=== PATIENT | female | born 1955 | race Caucasian/White ===

== ENCOUNTER 2017-02-25 13:11 | Emergency (ER) | payer OTHER ==
[~2017-02-25] VITALS: Ht 172.7 cm; Wt 61.2 kg
[~2017-02-25 13:11] MED LIST: ALEVE220 M1 PO; DOCUSATE SODIU100 MG PO; FERROUS SULFAT325 M1 PO; LEXAPRO10 M1 PO; MELATONIN5 M1 PO; NICODERM C21 MG/24 H TOP; OXACILLIN2 G1 IV; PERCOCET 325 MG1 TA2 PO; PERCOCET 5-3251 EACH PO; PROAIR HFA0.09 MG/Ac INH; PROAIR HFA8.5 GM INH; SYMBICORT 16010.2 GM INH; SYMBICORT 80/4.1 PUF INH; TYLENOL TAB 32325 MG PO
--- NOTE | 2017-02-25 15:26 | ED PSYCHIATRIC COMPLAINT ---
History of Present Illness General Chief Complaint: Psychiatric Related Complaint Stated Complaint: FAILURE TO THRIVE Vital Signs & Intake/Output Vital Signs & Intake/Output Vital Signs Date Time Temp Pulse Resp B/P Pulse O2 O2 Flow FiO2 Ox Delivery Rate 02/25 1347 98.4 105 18 94/66 96 Room Air Allergies Coded Allergies: NO KNOWN ALLERGIES (02/12/15) Reconcile Medications Albuterol Sulfate (Proair Hfa) 8.5 GM HFA.AER.AD 2 PUFF INH Q4H PRN COPD ( Reported) Budesonide/Formoterol Fumarate (Symbicort 160-4.5 Mcg Inhaler) 10.2 GM HFA.AER.AD 2 PUFF INH BID COPD (Reported) Escitalopram Oxalate (Lexapro) 10 MG TABLET 10 MG PO DAILY Oxycodone HCl/Acetaminophen (Percocet 5-325 MG Tablet) 5 MG-325 MG TABLET 1-2 TAB PO Q4-6H PRN PAIN Triage Note: BIBA, STATES "IM DEPRESSED", "I HAVE NO ONE". STATES SHE DRANK 5 "NIPS" TODAY. STATES HER SON AND [id number] HAVE "BLOCKED ME OUT". S/P HUMERUS SURGERY 10/05. DENIES SI OR HI. STATES "I WANT TO GO TO [place]". 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 CAD age 62). Departure Departure Condition: Stable Referrals: MONSE MUELLER MD (PCP/Family) Departure Forms: Customer Survey General Discharge Information
--- NOTE | 2017-02-25 15:43 | ED GENERAL ADULT ---
History of Present Illness General Chief Complaint: General Adult Stated Complaint: FAILURE TO THRIVE Source: patient, old records, EMS Exam Limitations: no limitations Vital Signs & Intake/Output Vital Signs & Intake/Output Vital Signs Date Time Temp Pulse Resp B/P Pulse O2 O2 Flow FiO2 Ox Delivery Rate 02/25 1347 98.4 105 18 94/66 96 Room Air Allergies Coded Allergies: NO KNOWN ALLERGIES (02/12/15) Reconcile Medications Albuterol Sulfate (Proair Hfa) 8.5 GM HFA.AER.AD 2 PUFF INH Q4H PRN COPD ( Reported) Budesonide/Formoterol Fumarate (Symbicort 160-4.5 Mcg Inhaler) 10.2 GM HFA.AER.AD 2 PUFF INH BID COPD (Reported) Escitalopram Oxalate (Lexapro) 10 MG TABLET 10 MG PO DAILY Oxycodone HCl/Acetaminophen (Percocet 5-325 MG Tablet) 5 MG-325 MG TABLET 1-2 TAB PO Q4-6H PRN PAIN Triage Note: JOANNA, STATES "IM DEPRESSED", "I HAVE NO ONE". STATES SHE DRANK 5 "NIPS" TODAY. STATES HER SON AND [id number] HAVE "BLOCKED ME OUT". S/P HUMERUS SURGERY 10/05. DENIES SI OR HI. STATES "I WANT TO GO TO [place]". Triage Nurses Notes Reviewed? yes Onset: Abrupt Duration: week(s): (FEW) Timing: recent history Injury Environment: home Severity: mild, moderate Modifying Factors: Worsens With: movement. HPI: 61 YEAR OLD FEMALE PRESENTS TO THE ER TODAY DUE TO AN INCREASE IN HER DEPRESSION AND INABILITY TO CARE FOR HERSELF AT HOME. SHE RECENTLY HAD THREE SHOULDER SURGERIES OVER THE PAST TWO YEARS WHICH SHE STATES HAVE CONTRIBUTED TO HER ABILITY TO PERFORM HER ADLS. SPECIFICALLY, SHE STATES SHE HAS BEEN UNABLE TO BRUSH HER TEETH, BEEN UNABLE TO SHOWER, IS UNABLE TO COMPLETE HOUSEWORK AND REPORTS HER HOUSE IS AN OVERWHELMING MESS. SHE STATES IT HAS GOTTEN TO THE POINT WHERE SHE HAS CLOTHING STAINED WITH FECES SITTING IN THE SINK BECAUSE SHE IS UNABLE TO WASH THEM. SHE HAS BEEN ABLE TO EAT AND DRINK SHE HAS RESORTED TO ORDERING TAKOUT FOR MOST MEALS. SHE DOES ENDORSE A LOSS OF APPETITE AND INSOMNIA AT TIMES. SHE REPORTS DRINKING 5 NIPS THIS MORNING. SHE ENDORSES A HISTORY OF ALCOHOL ABUSE FOR MANY YEARS, BUT STATES SHE DID NOT DRINK FOR 4 DAYS PRIOR TO TODAY. SHE DOES NOT HAVE ANY TREMORS CURRENTLY (LAST DRINK 4 HOURS AGO ) BUT HAS HAD WITHDRAWL SYMPTOMS IN THE PAST AT TIMES. SHE DENIES USE OF ILLICIT DRUGS SINCE HER TEENAGE YEARS AND IS A TOBACCO SMOKER. SHE DENIES SI/HI , ALTHOUGH SHE HAS EXPEREINCED SI IN THE REMOTE PAST BUT HAS NEVER ATTEMPTED SUICIDE. SHE DENIES AUDITORY/VISUAL HALLUCINATIONS. SHE IS TAKING ESCITALOPRAM PRESECRIBED BY DR. MUELLER AND IS UNDER THE CARE OF A PSYCHOLOGIST AT [place]. SHE STATES SHE IS COMING TO THE ED TODAY MOSTLY BECAUSE SHE "WANTS TO GO BACK TO [facility]" AND "JUST NEEDS HELP BECAUSE I HAVE NO ONE AND I CAN'T TAKE CARE OF MYSELF ANYMORE WITH MY SHOULDER." Past History Travel History Traveled to [facility] past 21 day No Medical History Any Pertinent Medical History? 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 CAD age 62). Hx Contributory? No Review of Systems Review of Systems Constitutional: Reports: weakness. Denies: chills, fever. EENTM: Reports: no symptoms. Respiratory: Denies: cough, short of breath. Cardiovascular: Denies: chest pain. GI: Denies: abdominal pain. Genitourinary: Reports: no symptoms. Musculoskeletal: Reports: joint pain (chronic). Skin: Reports: no symptoms. Neurological/Psychological: Reports: no symptoms. Hematologic/Endocrine: Denies: bruising, bleeding. Immunologic/Allergic: Denies: splenectomy. All Other Systems: Reviewed and Negative Physical Exam Physical Exam General Appearance: alert, awake, mild distress, thin Head: atraumatic, normal appearance Eyes: Bilateral: normal appearance, PERRL, EOMI. Ears, Nose, Throat: normal pharynx, hearing grossly normal Neck: normal inspection, supple, full range of motion Respiratory: normal breath sounds, chest non-tender, no respiratory distress Cardiovascular: regular rate/rhythm Peripheral Pulses: 2+ radial (R), 2+ radial (L) Extremities: normal inspection, no edema Neurologic/Psych: awake, alert Skin: intact, normal color, warm/dry Core Measures ACS in differential dx? No CVA/TIA Diagnosis: No Severe Sepsis Present: No Septic Shock Present: No Progress Differential Diagnoses I considered the following diagnoses in my evaluation of the patient: [ DEPRESSION, ANXIETY, ALCOHOL DEPENDENCE, ALCOHOL ABUSE] Plan of Care: Orders Procedure Date/time Status URINE DRUGS OF ABUSE 02/25 154 Complete URINALYSIS 02/25 154 Complete ETHANOL 02/25 154 Complete COMPREHENSIVE METABOLIC PANEL 02/25 1543 Complete CBC WITHOUT DIFFERENTIAL 02/25 1543 Complete Laboratory Tests 02/25/17 1640: Urine Opiates Screen < 100.00, Methadone Screen 58, Barbiturate Screen < 60, Ur Phencyclidine Scrn < 6.00, Amphetamines Screen < 100, U Benzodiazepines Scrn < 85, Urine Cocaine Screen < 50, Urine Cannabis Screen < 5.00, Urine Color YEL, Urine Clarity CLEAR, Urine pH 6.0, Ur Specific [place] <= 1.005, Urine Protein NEG, Urine Ketones NEG, Urine Nitrite NEG, Urine Bilirubin NEG, Urine Urobilinogen 1.0, Ur Leukocyte Esterase NEG, Ur Microscopic EXAM NOT REQUIRED, Urine Hemoglobin NEG, Urine Glucose NEG 02/25/17 1622: Anion Gap 19 H, Estimated GFR > 60, BUN/Creatinine Ratio 13.3, Glucose 96, Calcium 9.4, Total Bilirubin 0.4, AST 55 H, ALT 66 H, Alkaline Phosphatase 94, Total Protein 7.3, Albumin 4.0, Globulin 3.3, Albumin/Globulin Ratio 1.2, CBC w Diff NO MAN DIFF REQ, RBC 4.61, MCV 89.5, MCH 29.7, RDW 19.9 H, MPV 8.1, Gran % 40.0 L, Lymphocytes % 41.0, Monocytes % 15.4 H, Eosinophils % 1.6, Basophils % 2.0, Absolute Granulocytes 1.8, Absolute Lymphocytes 1.8, Absolute Monocytes 0.7 H, Absolute Eosinophils 0.1, Absolute Basophils 0.1, PUBS MCHC 33.2, Serum Alcohol 158.0 02/25/17 1544: Serum Alcohol Cancelled NO SI/HI. PATIENT STATES THAT SHE JUST NEEDS ASSISTANCE WITH ADL AT HOME NOW THAT HER GIRL QUIT AND THAT HER SON WON'T HELP HER. CASE MANAGEMENT CONSULTED. 5:29 PM Patient given private pay information for home care aids as well as she will be set up for outpatient nursing services by care from case management. Oral potassium given. Patient is not suicidal or homicidal. [employer] contacted. (ANGELICA JOHNSON,RODNEY) Initial ED EKG: none Departure Departure Time of Disposition: 1727 Disposition: HOME OR SELF CARE Condition: Stable Clinical Impression Primary Impression: Depressed Secondary Impressions: EtOH dependence, Hypokalemia Referrals: AMI JOHNSON,MONSE Yates (PCP/Family) Additional Instructions: Please follow up with the list of private pay aids and Jaqu[facility] will [facility]. Stop drinking alcohol. Please follow up with your orthopedic appointments. Departure Forms: Customer Survey General Discharge Information Critical Care Note Critical Care Note Critical Care Time: non-applicable
[2017-02-25 16:30] LABS: ABSOLUTE BASOPHIL COUNT 0.1 /CUMM (0.0-0.2); ABSOLUTE EOSINOPHIL COUNT 0.1 /CUMM (0.0-0.7); ABSOLUTE GRANULOCYTE CT 1.8 /CUMM (1.4-6.5); ABSOLUTE LYMPH COUNT 1.8 /CUMM (1.2-3.4); ABSOLUTE MONOCYTE COUNT 0.7 /CUMM (0.10-0.60); PLATELET COUNT 207 /CUMM (130-400)
[2017-02-25 16:32] LABS: EOSINOPHIL % 1.6 % (0-5); HEMATOCRIT 41.3 % (37-47); MEAN CORPUSCULAR HGB 29.7 PG (27.0-31.0); MEAN CORPUSCULAR HGB CONC 33.2 G/DL (33.0-37.0); MEAN CORPUSCULAR VOLUME 89.5 FL (81.0-99.0); MEAN PLATELET VOLUME 8.1 FL (7.4-10.4); RBC DISTRIBUTION WIDTH 19.9 % (11.5-14.5); RED BLOOD CELL CT 4.61 /CUMM (4.20-5.40); WHITE BLOOD CELL COUNT 4.5 /CUMM (4.8-10.8)
[2017-02-25 18:04] VITALS: BP 125/55
--- NOTE | 2017-02-26 12:00 | NUR ---
Case mgmnt TSF: I had received a call from [facility] ([place]). They will not be able to accept the patient on service as they do not have any CENTRAL OFFICE INSTALLER available. I placed a call to [facility] and spoke with gas station operator RN. He accepted the patient and I faxed over all clinical with fax confirmation. I asked if they could get nursing out today if at all possible. He thought that it would be possible. I also stated patient's need for CENTRAL OFFICE INSTALLER. I called the patient and updated her to agency change. She is in agreement. CM complete.
--- NOTE | 2017-03-31 10:21 | NUR ---
03/31 CASE MGMT- CALL FROM PT STATING THAT SHE WOUDL LIKE A DIFFERENT AGENCY SET UP FOR [facility]. PT STATES RN WAS TEXTING HER AND THAT SHE DOEN'T KNOW HOW TO ANSWER HER TEXTS AND THEN VISITNG RN'S STARTED CALLING HER SON PER PT WHICH UPSET HIM AND SO SHE DOESN'T WANT [facility] ANYMORE. I EXPLAINED TO PT THAT WE COULD CALL [facility] AND HAVE THEM CALL INSTEAD OF TEXT ANY MORE AND THAT ANY HOME CARE WOULD CALL A PERSON LISTED TO NOTIFY IF THEY WERE NOT ABLE TO GET A HOLD OF HER BECAUSE THEY MIGHT HAVE BEEN WORRIED FOR HER. SHE WAS AGREEABLE TO [facility] COMING OUT AGAIN BUT THEN STATED THAT SHE DIDN'T WANT THEM TO COME OUT THIS WEEK AND SHE MAY DECIDE THAT SHE ONLY WANTS THEM TO COME OUT WHEN SHE IS AVAILABLE. EXPLAINED TO PT THAT AGENCIES NEED TO COME OUT WHEN SCHEDULED TO MAKE SURE PATIENT IS FOLLOWING TREATMENT PLAN AND ABLE TO PERFORM ADL'S. PT STATES AT THIS TIME SHE IS REFUSING ALL SERVICES BECAUSE SHE ONLY WANTS THEM OUT WHEN SHE IS AVAILABLE. CALL PLACED TO [facility] AND SPOKE WITH TRUDI WHOM STATES THAT THEY HAVE HAD A VERY DIFFICULT TIME BEING ABLE TO SEE PT BECAUSE SHE IS ALWAYS CANCELLING HER SCHEDULED VISIT OR WONT ANSWER HER DOOR WHEN SHE IS SCHEDULED AND WONT ANSWER HER PHONE WHEN THEY CALL HER. PT DOES NOT QUALIFY FOR ELDERLY PROTECTIVE SERVICE CALL DUE TO HER AGE AT THIS TIME.
== END 2017-02-25 18:05 ==
LOC: ERH 13:11
PROVIDERS: Emergency Medicine
DX: F32.9 Major depressive disorder, single episode, unspecified (principal); F10.20 Alcohol dependence, uncomplicated; E87.6 Hypokalemia
CPT/HCPCS: 80307; 81003; G0480

== ENCOUNTER 2017-04-02 07:51 | Emergency (ER) | payer OTHER ==
[~2017-04-02] VITALS: Ht 172.7 cm; Wt 61.2 kg
--- NOTE | 2017-04-02 07:58 | ED HEAD/FACIAL INJ COMPLAINT ---
History of Present Illness General Chief Complaint: Fall Stated Complaint: FALL Source: patient Exam Limitations: no limitations Allergies Coded Allergies: NO KNOWN ALLERGIES (02/12/15) Reconcile Medications Albuterol Sulfate (Proair Hfa) 8.5 GM HFA.AER.AD 2 PUFF INH Q4H PRN COPD ( Reported) Alendronate Sodium 70 MG TABLET 1 TAB PO QW BONES (Reported) in the morning, at least 30 minutes before the first food, beverage, or medication of the day Budesonide/Formoterol Fumarate (Symbicort 160-4.5 Mcg Inhaler) 10.2 GM HFA.AER.AD 2 PUFF INH BID COPD (Reported) Escitalopram Oxalate 10 MG TABLET 1 TAB PO DAILY MENTAL HEALTH (Reported) Escitalopram Oxalate (Lexapro) 10 MG TABLET 10 MG PO DAILY Oxycodone HCl/Acetaminophen (Percocet 5-325 MG Tablet) 5 MG-325 MG TABLET 1-2 TAB PO Q4-6H PRN PAIN Triage Note: PT BIBA FOR FALL. PT STATES YESTERDAY SHE TRIPPED GOING UP THE STAIRS HITTING RIGHT EYE. PT DENIES LOC. PT C/O BLURRY VISION AND ON AND OFF H/A SHE STATES ITS D/T THE WEATHER AND HER SINUSES Triage Nurses Notes Reviewed? yes HPI: Ms Almonte is a 61-year-old female with past medical history of COPD and depression who presented to the emergency department on the morning of 04/02/2017 after experiencing a mechanical fall on 04/01/2017. Patient reports that she was in her normal state of health until the early afternoon when she walked down a flight of stairs to check her mail. Upon subsequently heading back up she missed a step and had a fall. She states that she knocked the side of her head and developed local tenderness and injury. Prior to admission the patient reports that she kept the area cold with ice packs. This morning she woke up and continues to experience worsening pain as well as blurry vision prompting her to call the ambulance. Currently he pain was rated 8 out of 10 in severity. Described as a dull pain. Worse with pressure and palpation. Patient denies any fever, chills, nausea, vomiting. She denies any loss of consciousness. She denies any bowel or bladder incontinence. The patient does endorse this was a second fall which she had over last 3 weeks. She currently lives alone. Primary care physician is Dr. Pickens The patient does have a history of a right humeral fracture approximately 2-1/2 years ago. She is following up with [facility], Dr. Argueta and has an appointment this week. Past surgical history: Appendectomy, lumbar fusion, cervical fusion, right rotator cuff tendon repair, and right humeral shaft external fixation. (LIO NEGRON MD) Vital Signs & Intake/Output Vital Signs & Intake/Output Vital Signs Date Time Temp Pulse Resp B/P B/P Pulse O2 O2 Flow FiO2 Mean Ox Delivery Rate 04/02 1101 98.0 80 20 115/76 90 Room Air 04/02 0755 97.0 92 20 121/77 96 Room Air Past History Travel History Traveled to [place] past 21 day No Medical History EENT: NONE Cardiovascular: NONE Respiratory: asthma, COPD Gastrointestinal: NONE Hepatic: NONE, RUPTURED APPENDIX Renal: NONE Musculoskeletal: vertebral fusion R ROTATOR CUFF SURGERY RT HUMEROUS FX PLATE & SCREWS IN ANKLE Psychiatric: NONE Endocrine: NONE Blood Disorders: NONE Cancer(s): NONE 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 CAD age 62). (LIO NEGRON MD) Medical History Any Pertinent Medical History? see below for history Family History Hx Contributory? No (ALINA KUNZ MD) Review of Systems Review of Systems Constitutional: Reports: see HPI. (LIO NEGRON MD) Review of Systems EENTM: Reports: see HPI, blurred vision. Respiratory: Reports: no symptoms. Cardiovascular: Reports: no symptoms. GI: Reports: no symptoms. Genitourinary: Reports: no symptoms. Musculoskeletal: Reports: no symptoms. Skin: Reports: no symptoms. Neurological/Psychological: Reports: no symptoms. Hematologic/Endocrine: Reports: no symptoms. Immunologic/Allergic: Reports: no symptoms. All Other Systems: Reviewed and Negative (ALINA KUNZ MD J.) Physical Exam Physical Exam General Appearance: well developed/nourished, no apparent distress, alert, awake , comfortable Head: Boland's Sign (Right ), ecchymosis (Right ), swelling (Right Eye), tenderness (Right ) Eyes: Left: normal appearance. Right: lid inflammation. Bilateral: PERRL, EOMI. Ears, Nose, Throat: normal pharynx, normal ENT inspection Neck: normal inspection, supple Respiratory: chest non-tender, Increased Breath Sounds Cardiovascular: regular rate/rhythm Gastrointestinal: normal bowel sounds, soft, non-tender Back: normal inspection Extremities: Right Arm in Sling. Limited movement. Psychiatric: awake, alert, oriented x 3 Cranial Nerves: normal hearing, normal speech, PERRL (JAMIL JOHNSON,LIO) Physical Exam Coordination/Gait: normal gait Motor/Sensory: no motor/sensory deficits Lymphatic: no anterior cervical na (ZE JOHNSON,ALINA Hedrick) Progress Differential Diagnosis: orbit fracture, skull fracture (JAMIL JOHNSON,LIO) Plan of Care: Orders Procedure Date/time Status Regular Diet 04/02 B Active Diagnostic Imaging: Viewed by Me: CT Scan. Discussed w/RAD: CT Scan. Radiology Impression: PATIENT: TONY ALMONTE PRESENT AGE: 61 PATIENT ACCOUNT NO: [id number] : 59 LOCATION: [facility] ORDERING PHYSICIAN: LIO NEGRON MD SERVICE DATE: 04/02/17- EXAM TYPE: CAT - CT HEAD WO IV CONTRAST; CT ORBITS WO IV CONTRAST EXAMINATION: CT HEAD WITHOUT CONTRAST CT ORBITS WITHOUT CONTRAST CLINICAL INFORMATION: Recent fall. Ecchymosis. Right visual field symptoms. COMPARISON: CT head noncontrast 02/22/2016. TECHNIQUE: CT head is performed in axial plane without intravenous contrast. Additional 2-D coronal reformatted images are generated on the CT workstation. CT orbits is performed without contrast in axial plane. Additional 2-D coronal and sagittal reformatted images are generated on the CT workstation. DLP: 786 mGy-cm (head and orbits) FINDINGS: CT head: There is no intracranial hemorrhage, hematoma, or extra-axial fluid collection. The ventricles are normal in size. There is no hydrocephalus, edema, or mass effect. The kimbrough-white matter differentiation appears symmetric. There is no visible acute territorial infarct or mass lesion. The calvarium appears intact. There is no pneumocephalus or orbital emphysema. The visualized sinuses and middle ears and mastoid air cells show no significant mucosal thickening. There are no air-fluid levels. CT orbits: There is soft tissue swelling overlying the right orbit. The globes are intact. The retrobulbar soft tissues appear normal. There is no orbital hematoma or emphysema. The orbital rims and floors and zygomatic arches are intact. Subtle irregularity of the nasal bridge is seen which could represent old or minor acute fracture. Recommend correlation with clinical findings. The sinuses the visualized sinuses, middle ears, and mastoid air cells appear clear and without air-fluid levels. There is mild mucosal thickening right maxillary sinus. IMPRESSION: 1. CT head: No acute intracranial abnormality. 2. CT orbits: Soft tissue swelling overlying right orbit. Globes and retrobulbar soft tissues are unremarkable. No orbital fracture.Subtle irregularity of the nasal bridge which could represent old or minor acute fracture. Recommend correlation with clinical findings. DICTATED BY: ABIGAIL LAM MD DATE/TIME DICTATED:04/02/17958 RECONCILER:KAMRAN DATE/TIME TRANSCRIBED:04/02/17958 CONFIDENTIAL, DO NOT COPY WITHOUT APPROPRIATE AUTHORIZATION. <Electronically signed in Other Vendor System> SIGNED BY: ABIGAIL LAM MD 04/02/17 1018 (ZE JOHNSON,ALINA Hedrick) Departure Departure Condition: Stable Clinical Impression Primary Impression: Orbit trauma, right Referrals: AMI JOHNSON,MONSE Yates (PCP/Family) Additional Instructions: Please follow-up with your primary care physician within 7 days. Please inform your primary care physician of this visit to the emergency department. Please follow-up with your orthopedic service as previously scheduled. Should your vision deteriorate or should you experience any confusion, an additional fall or worsening pain in your eye, please come back to the Emergency Department. Departure Forms: Customer Survey General Discharge Information (JAMIL JOHNSON,LIO) Departure Disposition: HOME OR SELF CARE Resident Co-Sign Statement Statement: ED Attending supervision documentation- [X] I saw and evaluated the patient. I have also reviewed all the pertinent lab results and diagnostic results. I agree with the findings and the plan of care as documented in the Resident's documentation. [X] I have reviewed the ED Record and agree with the Resident's documentation. [] Additions or exceptions (if any) to the Resident's note and plan are summarized below: [Personal seen and examined this patient. I read the above note and agree with what has been written. Patient had a mechanical trip and fall yesterday while climbing the stairs. Patient hit the right side of her face on the stairs. There was no loss of consciousness. Patient woke up this morning and noticed severe ecchymosis around her right eye. Patient states that her vision is slightly blurry. Patient denies any headache. There is no nausea or vomiting. Patient also fell to half weeks ago, again saying where she tripped and fell. Patient denies any chest pain or palpitations. There is no lightheadedness. Patient's CAT scan is normal. Will have case management evaluate to see about home therapy.] (ZE JOHNSON,ALINA Hedrick)
[2017-04-02] MEDS ORDERED: ESCITALOPRAM OX10 MG PO (09:45)
[2017-04-02] MEDS ORDERED: ALENDRONATE SOD70 M2 PO (09:45)
--- NOTE | 2017-04-02 10:18 | CT SCAN REPORT ---
EXAMINATION: CT HEAD WITHOUT CONTRAST CT ORBITS WITHOUT CONTRAST CLINICAL INFORMATION: Recent fall. Ecchymosis. Right visual field symptoms. COMPARISON: CT head noncontrast 02/22/2016. TECHNIQUE: CT head is performed in axial plane without intravenous contrast. Additional 2-D coronal reformatted images are generated on the CT workstation. CT orbits is performed without contrast in axial plane. Additional 2-D coronal and sagittal reformatted images are generated on the CT workstation. DLP: 786 mGy-cm (head and orbits) FINDINGS: CT head: There is no intracranial hemorrhage, hematoma, or extra-axial fluid collection. The ventricles are normal in size. There is no hydrocephalus, edema, or mass effect. The kimbrough-white matter differentiation appears symmetric. There is no visible acute territorial infarct or mass lesion. The calvarium appears intact. There is no pneumocephalus or orbital emphysema. The visualized sinuses and middle ears and mastoid air cells show no significant mucosal thickening. There are no air-fluid levels. CT orbits: There is soft tissue swelling overlying the right orbit. The globes are intact. The retrobulbar soft tissues appear normal. There is no orbital hematoma or emphysema. The orbital rims and floors and zygomatic arches are intact. Subtle irregularity of the nasal bridge is seen which could represent old or minor acute fracture. Recommend correlation with clinical findings. The sinuses the visualized sinuses, middle ears, and mastoid air cells appear clear and without air-fluid levels. There is mild mucosal thickening right maxillary sinus. IMPRESSION: 1. CT head: No acute intracranial abnormality. 2. CT orbits: Soft tissue swelling overlying right orbit. Globes and retrobulbar soft tissues are unremarkable. No orbital fracture.Subtle irregularity of the nasal bridge which could represent old or minor acute fracture. Recommend correlation with clinical findings.
[2017-04-02 11:01] VITALS: BP 115/76
[2017-04-02] MEDS ORDERED: POTASSIUM CHLO10 ME4 PO (17:19)
[2017-04-02] MEDS ORDERED: POTASSIUM CHLO10 ME5 PO (22:49)
== END 2017-04-02 11:25 ==
LOC: ERH 07:51
DX: S05.8X1A Other injuries of right eye and orbit, initial encounter (principal); W10.9XXA Fall (on) (from) unspecified stairs and steps, initial encounter; Y92.9 Unspecified place or not applicable; Y93.9 Activity, unspecified

== ENCOUNTER 2017-04-02 15:53 | Emergency (ER) | payer OTHER ==
[~2017-04-02] VITALS: Ht 172.7 cm; Wt 61.2 kg
[~2017-04-02 15:53] MED LIST changes: +ALENDRONATE SOD70 M2 PO; +ESCITALOPRAM OX10 MG PO
--- NOTE | 2017-04-02 15:55 | ED GENERAL ADULT ---
See Addendum History of Present Illness General Chief Complaint: General Adult Stated Complaint: BIBA FOR HEAD PAIN Source: patient, old records Exam Limitations: no limitations Vital Signs & Intake/Output Vital Signs & Intake/Output Vital Signs Date Time Temp Pulse Resp B/P B/P Pulse O2 O2 Flow FiO2 Mean Ox Delivery Rate 04/03 0634 99.1 101 18 140/83 92 Room Air 04/03 0605 99.9 04/03 0457 99.9 87 18 122/61 04/03 0456 99.9 87 18 122/61 94 Nasal 1.0L Cannula 04/03 0339 101.3 04/03 0332 101.3 04/03 0332 101.3 119 20 126/80 93 Nasal 1.0L Cannula 04/03 0330 101.3 119 20 126/80 04/03 0113 99.3 04/03 0106 99.3 115 20 111/60 92 Nasal 1.0L Cannula 04/02 2129 99.2 110 20 122/64 04/02 2129 99.2 110 20 122/64 94 Nasal 1.5L Cannula 04/02 2025 98.7 115 18 99/58 04/02 2025 98.7 115 18 99/58 94 Room Air ED Intake and Output 04/03 0000 04/02 1200 Intake Total Output Total Balance Patient 135 lb Weight Allergies Coded Allergies: NO KNOWN ALLERGIES (02/12/15) Triage Nurses Notes Reviewed? yes Onset: Gradual Duration: day(s):, constant Timing: recent history Injury Environment: home Severity: mild, moderate Severity Numbers: 4 No Modifying Factors: none Associated Symptoms: denies HPI: 61-year-old female with past medical history of COPD and depression re-presents the ER for evaluation complaining of feeling more depressed after she lost both her mother father and her over the past 3 years. The patient is normally followed by dr guadalupe regarding her depression.she has been compliant with her medication lexapro. The patient was seen in this ER earlier today after she had a fall yesterday. She was diagnosed with a facial contusion and sent home. She states while she was home she is having worsening pain and states that her cell phone when out and she couldn't get in touch with her son so she called the ambulance. There's been no recent new injury. She states her last alcoholic drink was yesterday. She states she does not drink everyday. She denies tobacco or other drug use. No neck back arm or leg pain. She is not taken anything for her symptoms. she denies suicidal Or homicidal ideation. (JUDAH CARRENO) Reconcile Medications Albuterol Sulfate (Proair Hfa) 8.5 GM HFA.AER.AD 2 PUFF INH Q4H PRN COPD ( Reported) Alendronate Sodium 70 MG TABLET 1 TAB PO QW BONES (Reported) in the morning, at least 30 minutes before the first food, beverage, or medication of the day Budesonide/Formoterol Fumarate (Symbicort 160-4.5 Mcg Inhaler) 10.2 GM HFA.AER.AD 2 PUFF INH BID COPD (Reported) Escitalopram Oxalate 10 MG TABLET 1 TAB PO DAILY MENTAL HEALTH (Reported) Escitalopram Oxalate (Lexapro) 10 MG TABLET 10 MG PO DAILY Oxycodone HCl/Acetaminophen (Percocet 5-325 MG Tablet) 5 MG-325 MG TABLET 1-2 TAB PO Q4-6H PRN PAIN Potassium Chloride 10 MEQ TABLET.ER 1 TAB PO DAILY hypokalemia Potassium Chloride 10 MEQ TAB.ER.PRT 1 TAB PO DAILY HYPOKALEMIA (LUCERO JOHNSON,LALO Medeiros) Past History Travel History Traveled to [place] past 21 day No Medical History Any Pertinent Medical History? see below for history EENT: NONE Cardiovascular: NONE Respiratory: asthma, COPD Gastrointestinal: NONE Renal: NONE Musculoskeletal: vertebral fusion R ROTATOR CUFF SURGERY RT HUMEROUS FX PLATE & SCREWS IN ANKLE Psychiatric: NONE Endocrine: NONE Blood Disorders: NONE Cancer(s): NONE PHYSICIAN OFFICE REP/Reproductive: NONE History of MRSA: No History of VRE: No History of CDIFF: No Tetanus Vaccine: 02/12/15 Surgical History Surgical History: appendectomy Psychosocial History Who do you live with Patient/Self What is your primary language Persian ETOH Use: alcoholic Family History Family History, If Any: MOTHER (Angina / ? CAD age 62). Hx Contributory? No (JUDAH CARRENO) Review of Systems Review of Systems Constitutional: Reports: see HPI. All Other Systems: Reviewed and Negative Comments Review of systems: See HPI, All other systems negative. Constitutional, no chills no fever, no malaise HEENT: No visual changes no sore throat no congestion, no ear pain Cardiovascular: No chest pain , no palpitation Skin: no rashes, no change in skin Respiratory: No dyspnea no cough no sputum no hemoptysis GI: No nausea no vomiting, no diarrhea, no bloating/constipation : No dysuria Muscle skeletal: No joint pain, no joint swelling, no back pain Neurologic: No numbness no confusion, headache Psych: depression,. Heme/endocrine: No bruising no bleeding Immunology: No lymphadenopathy (JUDAH CARRENO) Physical Exam Physical Exam General Appearance: well developed/nourished, alert, awake Comments: Well-developed well-nourished patient in no apparent distress. HEENT: Swelling and ecchymosis over the right orbit the rest of the face and scalp are atraumatic and nontender no subconjunctival hemorrhage extraocular motion intact Neck: Supple, FROM Back: FROM Cardiovascular: Regular rate and rhythms no murmurs rubs or gallops, Respiratory: Chest nontender.There were no bony deformities, no asymmetry. No respiratory distress. Patient speaking in full complete sentences. Breath sounds clear to auscultation bilaterally: NO W/R/R Extremities: full range of motion Neuro: awake, alert, and oriented to person, place and time. There were no obvious focal neurologic abnormalities. Skin: Warm & dry;No appreciable rash on exposed skin Psych: Mood affect normal, normal memory normal judgment. Core Measures ACS in differential dx? No CVA/TIA Diagnosis: No Severe Sepsis Present: No Septic Shock Present: No (JUDAH CARRENO) Progress Differential Diagnoses I considered the following diagnoses in my evaluation of the patient: [ Intoxication electrolyte abnormality depression bipolar Plan of Care: Orders Procedure Date/time Status Pathway - chart 04/03 0332 Active CIWA 04/03 0332 Active BASIC METABOLIC PANEL 04/02 2301 Complete Add-on Test (ER Only) 04/02 1653 Active MAGNESIUM 04/02 1622 Complete Laboratory Tests 04/02/17 2353: Anion Gap 16, Estimated GFR > 60, BUN/Creatinine Ratio 21.7, Glucose 97, Calcium 8.7 04/02/17 1703: Urine Color YEL, Urine Clarity CLEAR, Urine pH 6.0, Ur Specific [place] 1.025, Urine Protein 30 H, Urine Ketones TRACE H, Urine Nitrite NEG, Urine Bilirubin NEG, Urine Urobilinogen 0.2, Ur Leukocyte Esterase NEG, Ur Microscopic SEDIMENT EXAMINED, Urine WBC 1-3 H, Ur Epithelial Cells MOD H, Urine Bacteria FEW H, Hyaline Casts RARE H, Urine Hemoglobin NEG, Urine Glucose NEG 04/02/17 1700: Urine Opiates Screen 280.00, Methadone Screen 66, Barbiturate Screen < 60, Ur Phencyclidine Scrn < 6.00, Amphetamines Screen 187, U Benzodiazepines Scrn < 85, Urine Cocaine Screen < 50, Urine Cannabis Screen < 5.00 04/02/17 1622: Anion Gap 16, Estimated GFR > 60, BUN/Creatinine Ratio 20.0, Glucose 96, Calcium 9.2, Magnesium 1.2 L, Total Bilirubin 0.4, AST 34, ALT 41, Alkaline Phosphatase 71, Total Protein 6.9, Albumin 4.0, Globulin 2.9, Albumin/Globulin Ratio 1.4, CBC w Diff NO MAN DIFF REQ, RBC 4.71, MCV 91.3, MCH 30.3, RDW 17.7 H, MPV 7.9, Gran % 78.5 H, Lymphocytes % 15.6 L, Monocytes % 4.8, Eosinophils % 0.5, Basophils % 0.6, Absolute Granulocytes 9.4 H, Absolute Lymphocytes 1.9, Absolute Monocytes 0.6, Absolute Eosinophils 0.1, Absolute Basophils 0.1, PUBS MCHC 33.2, Serum Alcohol 369.[address] Vaca and case management patient will be a crisis evaluation that she will require a capacity evaluation, patient is without any complaints at this time there's been no recent new trauma or fall since her previous ER visit earlier this morning she feels comfortable with this plan which I discussed with her at length. case d/w and signed out to dr goldsmith at 2300 pending sobreity and crisis evaluation (JUDAH CARRENO) Initial ED EKG: none Hand-Off Endorsed To: LALO GOLDSMITH MD Endorsed Time: 2300 Pending: consult (CRISIS), other (SOBREITY) (JUDAH CARRENO) Hand-Off Endorsed To: MIGUEL ÁNGEL MANNING DO Endorsed Time: 0700 Pending: consult (LALO GOLDSMITH MD) Departure Departure Disposition: STILL A PATIENT Condition: Stable Clinical Impression Primary Impression: Alcohol intoxication Secondary Impressions: Hypokalemia Referrals: MONSE MUELLER MD (PCP/Family) Additional Instructions: potassium tablets as discussed. stop drinking alcohol Departure Forms: Customer Survey General Discharge Information (JUDAH CARRENO) Departure Prescriptions: Current Visit Scripts Potassium Chloride 1 TAB PO DAILY #30 TAB Potassium Chloride 1 TAB PO DAILY #30 TAB PA/ASSET ADMINISTRATOR Co-Sign Statement Statement: ED Attending supervision documentation- [] I saw and evaluated the patient. I have also reviewed all the pertinent lab results and diagnostic results. I agree with the findings and the plan of care as documented in the PA's/ASSET ADMINISTRATOR's documentation. [x] I have reviewed the ED Record and agree with the PA's/ASSET ADMINISTRATOR's documentation. [] Additions or exceptions (if any) to the PAs/ASSET ADMINISTRATOR's note and plan are summarized below: [] (LUCERO JOHNSON,LALO Medeiros) PA/ASSET ADMINISTRATOR Co-Sign Statement Statement: ED Attending supervision documentation- [] I saw and evaluated the patient. I have also reviewed all the pertinent lab results and diagnostic results. I agree with the findings and the plan of care as documented in the PA's/ASSET ADMINISTRATOR's documentation. [] I have reviewed the ED Record and agree with the PA's/ASSET ADMINISTRATOR's documentation. [] Additions or exceptions (if any) to the PAs/ASSET ADMINISTRATOR's note and plan are summarized below: [] (MIGUEL ÁNGEL MANNING DO) Critical Care Note Critical Care Note Critical Care Time: non-applicable (JUDAH CARRENO)
[2017-04-02 16:46] LABS: ABSOLUTE BASOPHIL COUNT 0.1 /CUMM (0.0-0.2); ABSOLUTE EOSINOPHIL COUNT 0.1 /CUMM (0.0-0.7); ABSOLUTE GRANULOCYTE CT 9.4 /CUMM (1.4-6.5); ABSOLUTE LYMPH COUNT 1.9 /CUMM (1.2-3.4); ABSOLUTE MONOCYTE COUNT 0.6 /CUMM (0.10-0.60); BASOPHIL % 0.6 % (0.0-2.0); EOSINOPHIL % 0.5 % (0-5); MEAN CORPUSCULAR HGB 30.3 PG (27.0-31.0); MEAN CORPUSCULAR HGB CONC 33.2 G/DL (33.0-37.0); MEAN CORPUSCULAR VOLUME 91.3 FL (81.0-99.0); MEAN PLATELET VOLUME 7.9 FL (7.4-10.4); PLATELET COUNT 280 /CUMM (130-400); RBC DISTRIBUTION WIDTH 17.7 % (11.5-14.5); RED BLOOD CELL CT 4.71 /CUMM (4.20-5.40); WHITE BLOOD CELL COUNT 11.9 /CUMM (4.8-10.8)
[2017-04-02 16:59] LABS: GRANULOCYTE % 78.5 % (42.2-75.2)
[2017-04-02] MEDS ORDERED: POTASSIUM CHLO10 ME4 PO (17:19)
[2017-04-02] MEDS ORDERED: POTASSIUM CHLO10 ME5 PO (22:49)
[2017-04-03 06:34] VITALS: BP 140/83
--- NOTE | 2017-04-05 10:32 | NUR ---
04/05 CASE MGMT- NOT ON DESK TO CALL PT REGARDING HHS. CALL PLACED TO PT AND MESSAGE LEFT. AWAITING RETURN CALL BACK.
== END 2017-04-03 07:08 ==
LOC: ERH 15:53
PROVIDERS: Physician Assistant Medical
DX: F10.129 Alcohol abuse with intoxication, unspecified (principal); E87.6 Hypokalemia
CPT/HCPCS: 80307; 81001; G0480